=== PATIENT | female | born 1960 | race Caucasian/White ===

== ENCOUNTER 2020-07-10 07:54 | Emergency (ER) | payer BC ==
[~2020-07-10] VITALS: Ht 170.2 cm; Wt 63.5 kg
== END 2020-07-10 08:40 | disposition home or self-care (01) ==
LOC: ER 07:54
DX: S66.911A Strain of unspecified muscle, fascia and tendon at wrist and hand level, right hand, initial encounter (principal); F17.200 Nicotine dependence, unspecified, uncomplicated; X50.1XXA Overexertion from prolonged static or awkward postures, initial encounter
CPT/HCPCS: 99283-25

== ENCOUNTER → 2024-11-03 | Outpatient (CLI) | payer BC | END | disposition home or self-care (01) | LOC: LAB SHORT 10:00 → LAB 10:00 | DX: N39.0 Urinary tract infection, site not specified (principal); R30.0 Dysuria; R35.0 Frequency of micturition | CPT/HCPCS: 87086 ==